=== PATIENT | male | born 1990 | race Caucasian/White ===

== ENCOUNTER 2019-06-25 11:54 | Emergency (ER) | payer BC, MEDICAID ==
[~2019-06-25] VITALS: Ht 182.9 cm; Wt 127.4 kg
[~2019-06-25 11:54] MED LIST: HYDR-3240 PO; NAPR-685 PO; ONDA4TAB7 PO
--- NOTE | 2019-06-25 13:27 | NUR ---
REPORT TO LYLE MAE. PT TAKEN TO CT, WILL BE RETURNED TO 21.
[2019-06-25 13:38] LABS: BASOPHILS # (AUTO) 0.09 x10^3/uL (0-0.1); BASOPHILS % (AUTO) 1 % (0-1); EOSINOPHILS # (AUTO) 0.32 x10^3/uL (0-0.4); EOSINOPHILS % (AUTO) 4 % (1-7); LYMPHOCYTES # (AUTO) 1.73 x10^3/uL (1-3.4); LYMPHOCYTES % (AUTO) 20 % (22-44); MD NO; MEAN CORPUSCULAR HEMOGLOBIN 27.3 pg (27.5-34.5); MEAN CORPUSCULAR HGB CONC 32.9 g/dL (33.2-36.2); MEAN CORPUSCULAR VOLUME 83.2 fL (81-97); MEAN PLATELET VOLUME 7.4 fL (7.4-10.4); MONOCYTES # (AUTO) 0.66 x10^3/uL (0.2-0.8); MONOCYTES % (AUTO) 7 % (2-9); NEUTROPHILS # (AUTO) 6.09 x10^3/uL (1.8-6.8); NEUTROPHILS % (AUTO) 69 % (42-75); PLATELET COUNT 268 x10^3/uL (130-400); RED BLOOD COUNT 5.46 x10^6/uL (4.38-5.82); RED CELL DISTRIBUTION WIDTH 14.4 % (9.4-14.8)
--- NOTE | 2019-06-25 13:47 | NUR ---
Report from RN Anjelica, pt was taken to CT & brought back to ED room 21 w/o complication, pt in bed, NAD, awaiting CT read. DORIE
[2019-06-25 13:49] LABS: ALANINE AMINOTRANSFERASE 58 U/L (12-78); ALBUMIN 3.4 g/dL (3.4-5.0); ANION GAP 3 mmol/L (5-15); CALCIUM 8.4 mg/dL (8.5-10.1); CHLORIDE 108 mmol/L (98-107); CREATININE 0.88 mg/dL (0.7-1.3)
[2019-06-25 13:53] LABS: ALKALINE PHOSPHATASE 51 U/L (45-117); BILIRUBIN,TOTAL 0.6 mg/dL (0.2-1.0); TOTAL PROTEIN 7.1 g/dL (6.4-8.2); TROPONIN I < 0.015 ng/mL (0.000-0.045)
--- NOTE | 2019-06-25 14:44 | NUR ---
Pt in bed resting, eyes closed, breathign unlabored, NAD, waiting on xray. WCTM.
--- NOTE | 2019-06-25 15:47 | NUR ---
radiology called to inquire about delay in getting Xray read, radiologist reading scan now.
[2019-06-25 15:52] VITALS: BP 120/49
== END 2019-06-25 16:12 | disposition home or self-care (01) ==
LOC: ED 14:19
DX: R55 Syncope and collapse (principal); R42 Dizziness and giddiness; E66.01 Morbid (severe) obesity due to excess calories; Z68.38 Body mass index [BMI] 38.0-38.9, adult
CPT/HCPCS: 36415; 71045; 72125; 80053; 84484; 85025; 87081; 87880; 93005; 99285